=== PATIENT | female | born 1970 ===

== ENCOUNTER 2017-06-25 06:04 | Day surgery (SDC) | payer OTHER ==
[~2017-06-25 06:04] MED LIST: METOPROLOL SUCC25 MG PO
[2017-06-25] MEDS ORDERED: PERCOCET 5-3251 EACH PO (09:31)
[2017-06-25] MEDS ORDERED: NABUMETONE500 MG PO (09:32)
== END 2017-06-25 16:00 | disposition home or self-care (01) ==
LOC: CIR.AMB 06:04
DX: M23.321 Other meniscus derangements, posterior horn of medial meniscus, right knee (principal); M65.861 Other synovitis and tenosynovitis, right lower leg